=== PATIENT | female | born 1960 | race Caucasian/White ===

== ENCOUNTER 2018-04-08 07:14 | Day surgery (SDC) | END 2018-04-08 11:23 | disposition home or self-care (01) ==

== ENCOUNTER 2018-07-09 08:09 | Day surgery (SDC) | END 2018-07-09 13:10 | disposition home or self-care (01) ==

== ENCOUNTER 2019-06-02 06:13 | Day surgery (SDC) | payer OTHER ==
[~2019-06-02] VITALS: Ht 165.1 cm; Wt 62.4 kg
[~2019-06-02 06:13] MED LIST: AMLO2.5T78 PO; ASPI81TA52 PO; LEVO75TA65 PO; METO-448 PO; OMEP20CA16 PO
[2019-06-02 06:50] VITALS: Ht 165.1 cm; Wt 62.4 kg
[2019-06-02 10:50] VITALS: BP 126/67; PULSE 90; RESP 15
== END 2019-06-02 12:53 | disposition home or self-care (01) ==
LOC: SDS 06:13
PROVIDERS: ATTEND Podiatrist Foot & Ankle Surgery
DX: M19.071 Primary osteoarthritis, right ankle and foot (principal); M20.21 Hallux rigidus, right foot; I10 Essential (primary) hypertension; E03.9 Hypothyroidism, unspecified; F17.200 Nicotine dependence, unspecified, uncomplicated
CPT/HCPCS: 28291; 73630; 80048; J0690; J1100; J1170; J2250; J2405; J3010; Z7512; Z7610; 88304; 88311